=== PATIENT | female | born 1960 | race Caucasian/White ===

== ENCOUNTER 2021-04-24 09:09 | Emergency (ER) | payer BC ==
[~2021-04-24] VITALS: Ht 167.6 cm; Wt 81.8 kg
[2021-04-24 09:19] VITALS: TEMP 97.8
[2021-04-24] MEDS ORDERED: BACTRIM DS 8001 TAB PO ×2 (09:51→11:04)
[2021-04-24 11:13] VITALS: BP 143/82; PULSE 90
== END 2021-04-24 11:15 | disposition home or self-care (01) ==
LOC: COL.ER 09:09
DX: I80.9 Phlebitis and thrombophlebitis of unspecified site (principal)

== ENCOUNTER → 2023-03-26 | Outpatient (CLI) | payer MEDICARE ==
[~2023-03-26] MED LIST: AMBIEN 5MG TABLE5 MG PO; AMOXICILLIN 8751 TAB PO; BACTRIM DS 8001 TAB PO; NORCO 325 MG-51 TAB PO; PRIL40 PO; PROZAC40 MG PO; ROXICODONE 55 MG/TAB PO; TAMOXIFEN CITRA20 MG PO; TORADOL 10MG TA10 MG PO; ZOFRAN 4MG T4 MG/TAB PO
== END ==
LOC: COL.RAD 11:07
DX: C50.411 Malignant neoplasm of upper-outer quadrant of right female breast (principal); R74.01 Elevation of levels of liver transaminase levels

== ENCOUNTER → 2023-06-11 | Outpatient (CLI) | payer MEDICARE ==
[~2023-06-11] VITALS: Ht 167.6 cm; Wt 79.3 kg
[~2023-06-11] MED LIST changes: +VITAMIN D 400400 IU PO
[2023-06-11 09:00] VITALS: BP 113/77; PULSE 89; TEMP 97.4
[2023-06-11 09:55] VITALS: BP 116/73; PULSE 76
== END ==
LOC: COL.RAD 08:39
DX: C50.411 Malignant neoplasm of upper-outer quadrant of right female breast (principal); C78.2 Secondary malignant neoplasm of pleura; R18.8 Other ascites
CPT/HCPCS: 19804

== ENCOUNTER 2023-07-17 00:24 | Inpatient (IN) | payer MEDICARE ==
[~2023-07-17] VITALS: Ht 167.6 cm; Wt 78.0 kg
[2023-07-17] VITALS (7 sets, daily range): BP systolic 98–104; BP diastolic 61–67; PULSE 85–98; TEMP 97.3–97.8
[~2023-07-17 00:24] MED LIST changes: +FASLODEX250 MG/5 M IM; +VERZENIO100 MG PO
[2023-07-17] MEDS ORDERED: Morphine 4 MG/ML VIAL IV ONE ×2 (00:45→01:30)
[2023-07-17] MEDS ORDERED: LR 1,000 ML IV ONE (00:45)
[2023-07-17 00:51] LABS: BASO % 0.4 % (0.0-2.0); EOS % 0.5 % (0.0-4.0); GRAN # 6.4 K/mm3 (1.4-6.5); GRAN % 74.9 % (42.2-75.2); HEMATOCRIT 43.2 % (37.0-47.0); HEMOGLOBIN 14.3 g/dl (12.5-16.0); LYMPH # 1.1 K/mm3 (1.2-3.4); LYMPH % 12.6 % (20.0-51.0); MEAN CELL VOLUME 92 fl (80.0-100.0); MEAN CORPUSCULAR HEMOGLOBIN 31 pg (27-31); MEAN CORPUSCULAR HGB CONC 33 g/dl (33.0-37.0); MEAN PLATELET VOLUME 12.5 fl (7.4-10.4); MONO % 11.4 % (1.7-9.3); PLATELET COUNT 155 K/mm3 (130-400); RED BLOOD COUNT 4.69 M/mm3 (4.10-5.30); REDCELL DISTRIBUTION WIDTH-CV 17.1 % (11.5-14.5)
[2023-07-17 01:08] LABS: ALBUMIN 2.4 g/dL (3.4-4.8); BILIRUBIN,TOTAL 3.8 mg/dL (0.2-1.2); CALCIUM 8.9 mg/dL (8.4-10.2); CREATININE, serum 0.88 mg/dL (0.57-1.11); POTASSIUM 3.6 mEq/L (3.5-4.5); TOTAL PROTEIN 5.9 g/dl (6.2-8.1)
[2023-07-17 01:15] LABS: TROPONIN-I 0.084 ng/mL (0.00-0.033)
[2023-07-17] MEDS ORDERED: Ondansetron 4 MG/2 ML VIAL IV ONE (01:30)
[2023-07-17] MEDS ORDERED: Iohexol 300 - 100 ML VIAL IV ONE (02:03)
[2023-07-17] MEDS ORDERED: NS 50 ML IV ONE (02:04)
[2023-07-17] MEDS ORDERED: HYDROmorphone 0.5 MG/0.5 ML SYRINGE IV ONE (02:30)
[2023-07-17] MEDS ORDERED: Heparin/D5W 250 ML IV SCH (03:00)
[2023-07-17] MEDS ORDERED: Heparin 5,000 UNITS/ML 1 ML VIAL IV PRN (03:00)
[2023-07-17] MEDS ORDERED: Heparin 5,000 UNITS/ML 1 ML VIAL IV ONE (03:00)
[2023-07-17 03:01] LABS: INR 1.6 (0.8-3.0)
[2023-07-17 03:03] LABS: PARTIAL THROMBOPLASTIN TIME 37.6 SECONDS (26.0-37.0)
[2023-07-17] MEDS ORDERED: LASIX 20MG TABL20 MG PO (03:45)
[2023-07-17] MEDS ORDERED: ALDACTONE 25MG25 M1 PO (03:46)
[2023-07-17] MEDS ORDERED: Zolpidem 5 MG TAB PO PRN (04:00)
[2023-07-17] MEDS ORDERED: oxyCODONE 5 MG TAB PO PRN ×2 (04:00→15:00)
[2023-07-17] MEDS ORDERED: HYDROmorphone 0.5 MG/0.5 ML SYRINGE IV PRN (04:00)
[2023-07-17] MEDS ORDERED: Ondansetron 4 MG/2 ML VIAL IV PRN (04:00)
[2023-07-17] MEDS ORDERED: Omeprazole 40 MG **** subs to Pantoprazole 40 MG PO SCH (07:00)
--- NOTE | 2023-07-17 08:58 | NUR ---
Pt arrived to the floor from ED. Pt is awake, alert and oriented. Oriented her to her room and reviewed plan of care with her. Pt is aware of how to order her meals.
[2023-07-17] MEDS ORDERED: Spironolactone 25 MG TAB PO SCH (09:00)
[2023-07-17] MEDS ORDERED: Furosemide 20 MG TAB PO SCH (09:00)
[2023-07-17] MEDS ORDERED: FLUoxetine 20 MG CAP PO SCH (09:00)
--- NOTE | 2023-07-17 09:40 | NUR ---
Notified ANDREE Thorne of troponin level
--- NOTE | 2023-07-17 11:26 | NUR ---
Initial visit; Patient thanked Physics Instructor for stopping. Mindy had some of her family present for support and was receptive to Physics Instructor for keeping her in her prayers.
--- NOTE | 2023-07-17 11:42 | NUR ---
Pt doing okay. was having complaints of pain, PRN pain medication given. Pt was also nauseated, she reports feeling better now. She was able to eat some applesauce and did take her medicaitons. Pts sister has been present. Cardiology has been in to see pt, discussed options. No plans right now. Pt aware that she is on a general diet. Educated her on watching Xa levels for hep drip. No other needs, call light within reach
[2023-07-17] MEDS ORDERED: MS CONTIN 115 MG/TAB PO (13:08)
--- NOTE | 2023-07-17 13:13 | NUR ---
Heparin stopped at this time due to Xa level
--- NOTE | 2023-07-17 14:15 | NUR ---
Leaving heparin off at this time due to paracentesis
--- NOTE | 2023-07-17 16:16 | NUR ---
tie up worker met with patient and sister, Stacey, P# [phone] to discuss discharge planning. Patient lives alone in [place]. PCP is Dr. Winters, [facility]. No issues affording medications. Stacey reports she has DPOA-HC but did not have a copy. No DME, Patient reports to be independent with ADLS. Stacey transports patient to and from appointments. Patient would like to return home at time of discharge. StudentTere, called Dr. Pérez and Dr. Winters's office for DPOA-HC documentation. Neither office had a copy. Discharge plan: Home
--- NOTE | 2023-07-17 16:30 | NUR ---
Pt back on the floor from paracentesis. Heparin started back at this time.
--- NOTE | 2023-07-17 18:16 | NUR ---
Pts daughter has arrived from [place], sister, Stacey has left. Dr Hull did go in and discuss that she should probably start looking in to hospice per her conversation with Dr Pérez. All questions answered at this time. No needs verbalized
--- NOTE | 2023-07-17 19:00 | NUR ---
Bedside report received-assumed care for staff design engineer. Assessment complete. A&Ox3. Denies pain/nausea/shortness of breath. VS stable. Noted to have edema to right upper extremity. INT to left forearm with heparin gtt@1200units per hour-infusing without difficulty. Noted to have drainage coming from para site. Current dressing saturated. Replaced at this time with gauze and foam pressure dressing. Plan of care discussed for this shift to include meds/pain control/calling for questions/concerns. Verbalizes understanding. Call light in reach. Will monitor.
--- NOTE | 2023-07-17 22:30 | NUR ---
HepXa 0.74. Rate decreased to 1100 units per hour per protocol. Next HepXa due in six hours.
[2023-07-18] VITALS (13 sets, daily range): BP systolic 97–127; BP diastolic 61–76; PULSE 85–104; TEMP 97.5–98.5
--- NOTE | 2023-07-18 05:33 | NUR ---
HepXa goal at 0.59. No change made to drip. Next HepXa due at 1130. Order placed
--- NOTE | 2023-07-18 06:00 | NUR ---
Patient rested off and on this shift. Heparin is currently infusing at 1100 units/hr to left forearm 20g-infusing without difficulty. VS stable. Denied need for pain medications. Next HepXa due at 1130. Deniescurrent needs. Call light in reach. Will monitor.
--- NOTE | 2023-07-18 06:45 | NUR ---
appears to be sleeping, in bed with lights off, eyes closed, resp quiet and easy, bedside shift report received from ANDREE Orosco
--- NOTE | 2023-07-18 06:56 | NUR ---
Bedside report given to ANDREE Templeton.
[2023-07-18] MEDS ORDERED: FLUoxetine 20 MG CAP PO SCH (09:00)
--- NOTE | 2023-07-18 09:15 | NUR ---
awake and sitting up in bed eating breakfast, Dr Warren and care team was in to see patient, will plan a thoracentesis, heparin drip stopped at this time per radiologist for thoracentesis, c/o minimal pain and medicated with roxicodone 5mg po per her request, denies other needs
--- NOTE | 2023-07-18 10:00 | NUR ---
full assessment completed, see interventions for further info, family in to visit, has large amount drainage from paracentesis site, old dressing removed, new 4x4s and foam tape applied
--- NOTE | 2023-07-18 11:22 | NUR ---
to radiology per WC for thoracentesis
--- NOTE | 2023-07-18 12:10 | NUR ---
returned from radiology and thoracentesis, has bandaid mid left back that is CD&I, has a little discomfort but otherwise now pain, heparin 1000 unit bolus given and heparin drip restarted at 11ml/hr, will order lunch now
[2023-07-18 12:32] LABS: PLEURAL FLUID RBC 3000 /mm3 (0-0); PLEURAL FLUID WBC 234 /mm3
[2023-07-18 12:40] LABS: PLEURAL FLUID APPEARANCE HAZY; PLEURAL FLUID COLOR YELLOW
--- NOTE | 2023-07-18 13:00 | NUR ---
c/o pain to back from thoracentesis 07/01, medicated with roxicodone 5mg po, had lunch and tolerated well
[2023-07-18] MEDS ORDERED: Apixaban 5 MG TABLET PO SCH (13:34)
--- NOTE | 2023-07-18 13:35 | NUR ---
DR Warren and palliative care team and talked with patient
--- NOTE | 2023-07-18 14:00 | NUR ---
IV heparin stopped, visiting with family
--- NOTE | 2023-07-18 14:15 | NUR ---
Had a family meeting with Dr. Warren, myself, Megan HUNG, pt-Mindy, daughter Kingsley and Sumit. Pt is currently DNR/DNI. Dr. Warren reviewed pt's status. Pt stated she would like to go over the details with her daughters later this afternoon. Megan HUNG gave the family discharge information for Hospice and reviewed options. When pt was asked if she had fears or concerns she responded," I still am young and I don't want to give up but it seems things are not working for that." Hx Metastatic Breast CA. Pt had 5275ml removed with Paracentesis, 650ml removed with Thoracentesis. Family had voiced thoughts of pt going to Hospice in [place]. Megan will investigate options. Pt was comfortable during talk- pain controlled- and was able to speak freely concerning her situation. 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
--- NOTE | 2023-07-18 14:30 | NUR ---
visiting with family, bedside shift report given to ANDREE Ramírez
--- NOTE | 2023-07-18 15:26 | NUR ---
driver utility workerSofie RNwatch case polisher and Dr. Warren met with patient, her daughter Titi and Titi's , Sumit. SW provided all options in the area for hospice. Titi explained that patient had previously been discussing hospice house in [place] closer to her daughters. Titi wanted to know about transportation. SW explained she would look into this if that would be an option. Titi explained the patient feels as though she is a burden and does not want them to stay here to care for her when they live in [place] but they do not feel this way and want to support her with whatever decision the patient would like. ANABELL spoke with Cyndee Joe whom explained transport would be up to the family unless they were to private pay for EMS as insurance would not cover this. SW spoke with family about the above information and they stated they were in between [facility] and [facility] home but they wanted the patient to have the evening to think it over and would speak with the social psychologist tomorrow. SW left weekend social psychologist number on the board. Discharge plan: Hospice (either at home or Hospice House)
--- NOTE | 2023-07-18 15:59 | NUR ---
THIS NURSE HAS TAKEN OVER CARE, PATIENT RESTING IN MED TALKING WITH FAMILY. NO REQUEST OR CONCERNS AT THIS TIME. AGREE WITH MORNING ASSESSMENT DONE THIS AM. CALL LIGHT IN REACH.
--- NOTE | 2023-07-18 22:30 | NUR ---
REC'D PHONE CALL FROM PT'S SISTER, SAHREE, STATED THAT PT HAS DECIDED ON HOSPICE HOUSE, BUT PRIOR TO GOING, PT WOULD LIKE TO DISCUSS WITH DOCTOR THE OPTION FOR PLEUREX DRAIN. WILL PASS ON IN AM REPORT.
[2023-07-18] MEDS ORDERED: Acetaminophen 325 MG TAB PO PRN (23:00)
[2023-07-19] VITALS (7 sets, daily range): BP systolic 102–116; BP diastolic 64–75; PULSE 95–106; TEMP 97.6–98
[2023-07-19 06:20] LABS: HEMOGLOBIN 13.8 g/dl (12.5-16.0); MEAN CORPUSCULAR HEMOGLOBIN 30 pg (27-31); MEAN CORPUSCULAR HGB CONC 35 g/dl (33.0-37.0); MEAN PLATELET VOLUME 11.7 fl (7.4-10.4); PLATELET COUNT 112 K/mm3 (130-400); RED BLOOD COUNT 4.55 M/mm3 (4.10-5.30); REDCELL DISTRIBUTION WIDTH-CV 17.1 % (11.5-14.5)
[2023-07-19 06:29] LABS: MEAN CELL VOLUME 86 fl (80.0-100.0)
--- NOTE | 2023-07-19 08:00 | NUR ---
Patient sleeping, nurse letting the patient sleeping. Call light within reach
--- NOTE | 2023-07-19 10:00 | NUR ---
Patient awake, sitting up in bed. A&Ox4. VSS. IV CDI. Denies pain and discomfort. Reports not sleeping well last night. Call light within reach. Patient working on eating breakfast
--- NOTE | 2023-07-19 10:23 | NUR ---
ANABELL met with Dr. Warren and RN to discuss patient's decision to transfer to [facility]. RN states patient and family are requesting to discharge with plurex drain. ANABELL spoke with Danny at [facility] who states they can accept with drain. She asked for cinicals to be sent. They do have an open bed and can accept patient once drain is placed and doctor to follow is secured. Clinicals emailed to Danny via secure email. Discharge Plan: Hospice House
[2023-07-20 09:17] VITALS: BP_SYST 121
--- NOTE | 2023-07-20 09:17 | NUR ---
Pt laying in bed. A&Ox4. VSS. S1S2. Clear lungs on RA. ABD is rounded, soft, non-tender with audible bowel sounds. Palpable pulses in all extremities with weakness in all extremities. +2 edema in R arm and BLE. Pt denies headahce, pain, n/v, dizziness. 2 areas of ecchymosis on upper back. Bandaid on mid-lower back from previous thoracentesis site is CDI. Ascites present. Previous paracentesis site in LLQ covered with foam tape - CDI. IV in L forearm is patent, no issues. Am meds administered as per EMAR. Pt wondering why her omeperazole is not ordered. Discussed with Pt that the provider would be notified. No further needs at this time. Call light in reach and bed alarm.
[2023-07-20] MEDS ORDERED: Omeprazole 40 MG **** subs to Pantoprazole 40 MG PO SCH (09:30)
[2023-07-20 09:40] VITALS: BP 121/77; PULSE 94; TEMP 97.8
[2023-07-20] MEDS ORDERED: ELIQUIS 5MG PO (09:44)
--- NOTE | 2023-07-20 09:44 | NUR ---
Disscussed D/C with Pt. Pt unsure if she is ready to go. Pt would like to talk with sister prior to leaving due to not having the Pleurex drain placed.
[2023-07-20] MEDS ORDERED: DULCOLAX S10 MG/SUPP RC (09:45)
[2023-07-20] MEDS ORDERED: TRANSDERM-0.5 MG/21 TD (09:45)
[2023-07-20] MEDS ORDERED: SYSTANE 0.4%-0.1 SOL OU (09:45)
[2023-07-20] MEDS ORDERED: ROXANOL 20MG20 MG/ML SL (09:46)
[2023-07-20] MEDS ORDERED: ATIVAN 1MG T1 MG/TAB PO (09:46)
[2023-07-20] MEDS ORDERED: Ondansetron 4 MG TAB PO PRN (11:45)
--- NOTE | 2023-07-20 12:13 | NUR ---
Collection Systems Technician met with patient earlier this morning to discuss discharge to hospice house today. Patient notified that per documentation pleurex drain was not indicated. Patient voiced understanding and stated she is ready to discharge. No family present during visit. Patient's sister arrived and met with Dr. Warren, attending, and this SW. She voiced her preference of patient having drain prior to transfer to hospice house. She stated she is a hospice nurse and she has spoken with oncologist regarding drain. Dr. Warren to speak with surgeon for input. SW notified by Dr. Warren that drain will be put in tomorrow and patient can discharge after procedure tomorrow. Danny with [facility] notified of plan Discharge plan: hospice house
--- NOTE | 2023-07-20 16:17 | NUR ---
Pt laying in bed. Pt reports mild nausea, declined zofran. Administered Protonix. Discussed procedure tomorrow and Pt signed consent. No further needs at this time. Call light in reach.
[2023-07-21] VITALS (13 sets, daily range): BP systolic 91–109; BP diastolic 40–61; PULSE 91–110; TEMP 97.5–98.3
[2023-07-21 06:27] LABS: HEMOGLOBIN 14.3 g/dl (12.5-16.0); MEAN CELL VOLUME 84 fl (80.0-100.0); MEAN CORPUSCULAR HEMOGLOBIN 31 pg (27-31); MEAN CORPUSCULAR HGB CONC 37 g/dl (33.0-37.0); MEAN PLATELET VOLUME 11.9 fl (7.4-10.4); PLATELET COUNT 133 K/mm3 (130-400); RED BLOOD COUNT 4.67 M/mm3 (4.10-5.30); REDCELL DISTRIBUTION WIDTH-CV 17.3 % (11.5-14.5)
--- NOTE | 2023-07-21 09:48 | NUR ---
ANABELL attended clinical rounds with team. Patient to have pleurex catheter placed today and will be stable for discharge to hospice house. ANABELL notified by associate relations specialist that surgery is on scheduled for 1600. ANABELL called and spoke with Danny with Hospice who stated they can accept patient tomorrow. Transport set for 10 am. CLAIRE Watson notified of plan. Patient notified of plan. Discharge plan: Hospice House
--- NOTE | 2023-07-21 10:08 | NUR ---
Follow-up visit; Patient thanked Tin Tie Machine Operator Automatic for returning to see if she has any needs at this time. Patient states that she will have a 'procedure' this afternoon and then at some point go to "Hospice." Mindy says she is doing alright, that she has a host of friends and family supporting her. Tin Tie Machine Operator Automatic left her with the thought that Tin Tie Machine Operator Automatic is always available to listen, even after she transfers to Hospice. She thanked Tin Tie Machine Operator Automatic.
[2023-07-21] MEDS ORDERED: NS 1,000 ML IV SCH (16:15)
--- NOTE | 2023-07-21 16:23 | NUR ---
Pt leaving the floor for pleurex drain placement. Pts sister at bedside at this time
[2023-07-21] MEDS ORDERED: NS 10 ML IV ONE (16:53)
[2023-07-21] MEDS ORDERED: fentaNYL 50 MCG/ML 1 ML SYRINGE/VIAL [PACU/SDC ONLY] IV PRN (17:15)
[2023-07-21] MEDS ORDERED: Ondansetron 4 MG/2 ML VIAL IV PRN (17:15)
[2023-07-21] MEDS ORDERED: HYDROmorphone 1 MG/1 ML SYRINGE [PACU/SDC ONLY] IV PRN (17:15)
--- NOTE | 2023-07-21 19:31 | NUR ---
report received from alva thayer. pt resting in bed with sister at bedside. new drain in place, cdi. pt denies pain. call light in reach. all needs met at this time.
[2023-07-21] MEDS ORDERED: Apixaban 5 MG TABLET PO SCH (21:00)
--- NOTE | 2023-07-21 21:06 | NUR ---
shift assessment complete, see documentation. pt tolerated hs meds well. pt denies pain. call light in reach. all needs met at this time.
--- NOTE | 2023-07-22 01:00 | NUR ---
Resumed cares from Maru CANDELARIO, patient resting in bed, eyes closed, looks comfortable.
--- NOTE | 2023-07-22 03:55 | NUR ---
Patient reports pain to left abdomen, medicated with oxycodone, denies further needs.
[2023-07-22 04:00] VITALS: BP 108/66; PULSE 99; TEMP 97.9
[2023-07-22 07:37] VITALS: BP 101/67; PULSE 103; TEMP 97.8
--- NOTE | 2023-07-22 08:30 | NUR ---
PT doing okay this morning. She is aware that she is going to be going to hospice house today. I did talk with her sister and is aware that she will be going as well. Plan is for 1000.
--- NOTE | 2023-07-22 09:05 | NUR ---
ANABELL secure emailed discharge orders and clinicals to Danny at [facility]. Patient scheduled for transport at 1000. ANABELL met with patient to discuss Medicare IM form. Patient agreeable to discharge and signed form, copy provided and original on chart. Discharge plan: [facility]
[2023-07-22 09:31] VITALS: BP_SYST 101
[2023-07-22 10:08] VITALS: BP 101/67; PULSE 103; TEMP 97.8
--- NOTE | 2023-07-22 10:15 | NUR ---
Pt is dressed and ready to go to [facility]. INT removed from left wrist. PRN tylenol given per request. No other needs, continue to wait for ride
--- NOTE | 2023-07-22 11:00 | NUR ---
Dressing to drain site removed. Serous drainage noted. Drain is in place with sutures. Pt stated abd was slightly tender. Hooked drain up to drainage bag. Bag filled over about 15 minutes. Removed drain when pts sister arrived for transport to Hospice. I did inform sisterStacey about the drain and how it works. Gave paper for more supplies to be ordered as needed.
--- NOTE | 2023-07-22 11:01 | NUR ---
Called and gave report to [facility]. All questions answered. Social work working on transportation at this time
--- NOTE | 2023-07-22 11:33 | NUR ---
ANABELL notified by nurse Cueto that patient has not been picked up for transfer to hospice house. SW called and spoke with Danny with [facility] and was told that they did not arrange transport and she apologized for the misunderstanding. SW spoke with patient and apologized for the confusion. Patient stated she is able to ride in car. SW called patient's sister who stated she will pick patient up in about 10 minutes. Nurse Cueto notified of plan.
--- NOTE | 2023-07-22 12:09 | NUR ---
Called and updated hospice house on pain medication given and drain amount
== END 2023-07-22 12:00 | disposition hospice, home (50) | DRG 435 ==
LOC: COL.ER 00:24 → MEDICAL 04:17 → SURG 04:17 → COL.ER 04:17 → SURG 14:50
PROVIDERS: Emergency Medicine; Nurse Practitioner Family; ADMIT Internal Medicine
PROC: 0W9G3ZZ Drainage of Peritoneal Cavity, Percutaneous Approach (ICD-10-PCS; principal; 2023-07-17)
PROC: 0W9B3ZX Drainage of Left Pleural Cavity, Percutaneous Approach, Diagnostic (ICD-10-PCS; 2023-07-18)
PROC: 0W9G30Z Drainage of Peritoneal Cavity with Drainage Device, Percutaneous Approach (ICD-10-PCS; 2023-07-21)
DX: C78.7 Secondary malignant neoplasm of liver and intrahepatic bile duct (principal); I81 Portal vein thrombosis; C79.51 Secondary malignant neoplasm of bone; R18.0 Malignant ascites; J90 Pleural effusion, not elsewhere classified; J98.11 Atelectasis; Z66 Do not resuscitate; Z51.5 Encounter for palliative care; C78.01 Secondary malignant neoplasm of right lung; C79.89 Secondary malignant neoplasm of other specified sites; E87.1 Hypo-osmolality and hyponatremia; E87.20 Acidosis, unspecified; C50.919 Malignant neoplasm of unspecified site of unspecified female breast; K21.9 Gastro-esophageal reflux disease without esophagitis; K74.60 Unspecified cirrhosis of liver; F41.9 Anxiety disorder, unspecified; F32.A Depression, unspecified; G89.29 Other chronic pain; K44.9 Diaphragmatic hernia without obstruction or gangrene; G62.9 Polyneuropathy, unspecified; Z90.13 Acquired absence of bilateral breasts and nipples; Z90.710 Acquired absence of both cervix and uterus; Z79.899 Other long term (current) drug therapy; Z87.891 Personal history of nicotine dependence; Z23 Encounter for immunization
CPT/HCPCS: C1729; J0690; J0780; J1170; J1644; J2270; J2405; J2704; J3010; J7030; J7120; Q9967